=== PATIENT | female | born 1975 | race Asian ===

== ENCOUNTER 2021-10-03 01:42 | Day surgery (SDC) | payer BC, SELFPAY ==
[2021-09-24 14:32] VITALS: BMI 35.9
--- NOTE | 2021-09-24 14:47 | PC.NURSE ---
Report to the Outpatient Waiting Room, entrance under the green pavilion located off [facility], at time 1200 on date 10/03/21. OR Time: 1300. - You and your visitor will be asked a series of questions to screen for COVID 19 for your protection. - A mask is required within the hospital. One visitor will be allowed to accompany the patient into the hospital. Patients visitor will be instructed to remain with patient at all times or leave the building. We will allow the visitor to come back to the postoperative area when patient is ready. Preoperative COVID Testing Requirements: No COVID Test needed if: (proof is required; if not received patient will have Rapid Test prior to entry) - Patient has received COVID Vaccine at least 14 days prior to procedure date or - Patient has positive COVID test result within last 90 days of surgery date. COVID Test needed if above criteria is not met Patients may have LIGHT BREAKFAST. Take the following medications with a SIP of water the morning of surgery: RX'D Medications to discontinue per physician: N/A Date to take last dose: N/A Please no make-up, nail hebrew, hairspray, perfume, deodorant, or body powder the day of surgery. No jewelry (including any body piercings) or valuables the day of surgery, leave them at home. Please take a shower or bath the night before, or the morning of, surgery with an antibacterial soap. Wear comfortable, loose fitting clothing. - Jewelry must be removed prior to entering the operating room. Rings and piercings that are not removed may be cut off. - The hospital will not accept responsibility for valuables. - Please leave all valuables, including medications, at home the day of surgery. If you are going home after surgery, YOU MAY DRIVE YOURSELF. Follow any additional instructions given to you from your surgeon. Telephone instructions given to JANETH ABERNATHY and asked if any additional questions and then verbalized understanding. Patient advised to call surgeon office or pre surgery nurse liaison [phone] if any additional questions.
--- NOTE | 2021-10-03 07:17 | WPDHPUPDATE1 ---
History and Physical Update Update Date/Time: 10/03/21 07:17 History and Physical has been reviewed, including an updated exam of the patient. There are NO changes in the patient's condition. Risks, benefits, and alternatives have been discussed and questions answered. Patient agrees to proceed with procedure.
[2021-10-03 08:16] VITALS: BP 139/89; PULSE 88; RESP 20; TEMP 37; O2SAT 98
[2021-10-03 10:00] VITALS: BP 123/76; PULSE 74; RESP 20; O2SAT 98
[2021-10-03 10:10] VITALS: BP 129/80; PULSE 68; RESP 20; O2SAT 99
[2021-10-03 10:20] VITALS: BP 127/68; PULSE 73; RESP 20; O2SAT 99
[2021-10-03 10:27] VITALS: BP 120/74; PULSE 69; RESP 20; O2SAT 99
[2021-10-03] MEDS: LIDO 1%/EPINEPHRINE/PF 1:200,000 30 ML VIAL INFILTRATE (10:32)
--- NOTE | 2021-10-03 10:44 | W.PM.PROC2 ---
Procedure Note - Detailed Date of Procedure 10/03/21 Pre-op Diagnosis right carpal tunnel syndrome Post-op Diagnosis Same Procedure Performed Right open carpal tunnel release Surgeon Frank Nair MD Anesthesia Local Description of Procedure The patient's right and was marked in the holding area. She was taken to the operating room and placed supine on the operating table. A time-out was held and confirmed. The extremity a was prepped and draped over a hand table. The site was marked for the incision. This area was infiltrated with 1% lidocaine with epinephrine. She required a couple of injections to complete the anesthesia . No tourniquet was utilized. The incision was made in the palm carried bluntly through the subcutaneous tissue. A couple of small vessels were cauterized. The palmar aponeurosis was incised with a 15. Blade. This was followed by incision into the transverse retinaculum. Under 3 point retraction the retinaculum was divided distally and then proximally to completely release it. The skin was closed with interrupted 5 0 nylon suture. No unusual anatomy was noted. The usual bandage was applied and she is discharged home with instructions in wound care and follow-up. She has a prescription for hydrocodone 5/325 number 7 Estimated Blood Loss 1 Tourniquet Time 0 Drains No Packing No Pathology None sent Complications No immediate complications Condition Stable Disposition Same day
== END 2021-10-03 10:58 | disposition home or self-care (01) ==
PROVIDERS: PCP Emergency Medicine; Visit Provider Plastic Surgery
PROC: (CPT 64721; principal; 2021-10-03 09:15)
DX: G56.01 Carpal tunnel syndrome, right upper limb (principal)
CPT/HCPCS: 64721

== ENCOUNTER 2022-05-06 13:08 | Outpatient (RCR) | payer OTHER, SELFPAY ==
[2022-05-06 13:18] VITALS: BMI 35.6
[2022-05-06 14:02] VITALS: BMI 35.6
== END 2022-06-05 13:21 | disposition home or self-care (01) ==
LOC: ANHDMC 13:08
PROVIDERS: PCP Emergency Medicine; Visit Provider Emergency Medicine
DX: E11.65 Type 2 diabetes mellitus with hyperglycemia (principal); Z71.89 Other specified counseling; Z71.3 Dietary counseling and surveillance
CPT/HCPCS: 97802; G0108

== ENCOUNTER 2024-01-18 07:49 | Outpatient (CLI) | payer BC, SELFPAY ==
--- NOTE | ~2024-01-18 | DEXA_ITS ---
Bone Density Report Name: JANETH ABERNATHY Age: 48 Sex: Female Ethnicity: White Date of : 1975 Indication: postmenopausal; history of glucocorticoids; cancer; Referring Provider: JANICE SUAREZ Study: Bone densitometry was performed. Exam Date: January 18, 2024 Accession number: [id number] Bone Density: Region BMD T-score Z-score Classification AP Spine(L1-L4) 0.831 -2.0 -1.4 Osteopenia Femoral Neck (Left) 0.691 -1.4 -0.8 Osteopenia Total Hip (Left) 0.972 0.2 0.6 Normal Femoral Neck (Right) 0.639 -1.9 -1.3 Osteopenia Total Hip (Right) 0.915 -0.2 0.2 Normal Total Hip Mean 0.943 0.0 0.4 Normal World Health Organization criteria for BMD impression classify patients as: Normal (T-score at or above -1.0), Osteopenia (T-score between -1.0 and -2.5), or Osteoporosis (T-score at or below -2.5). 10-year Fracture Risk(1): Major Osteoporotic Fracture 6.5% Hip Fracture 0.8% Reported Risk Factors: [place] (), Neck BMD=0.639, BMI=33.9, glucocorticoids (1) FRAX(R) Version 3.08. Fracture probability calculated for an untreated patient. Fracture probability may be lower if the patient has received treatment. Clinical Information Provided by Patient: Has taken Glucocorticoids Has used the following medications: Vitamin D Has the following medical conditions: Cancer, Leukiema, Lupus Patient maximum height was 62.2 Menopause Age: 31 Drinks caffeinated beverages Onset of menses at age 12 Number of children 0 Missed period for more than 6 months in a row Impression: The patient has low bone mass, based on the Total Spine T-score. The patient has an estimated ten-year risk of hip fracture of 0.8% and an estimated ten-year risk of major fracture of 6.5%, based on the WHO FRAX algorithm. The patient has risk factors, including: history of glucocorticoid therapy. Discussion: BONE DENSITY IS LOW AT ONE OR MORE SKELETAL SITES. This patient's lowest T-score is low at one or more skeletal sites. It meets the World Health Organization's (WHO) criteria for ?low bone mass? (T-score between -1.0 and -2.5). The patient's 10-year risk of fracture as calculated by FRAX is less than the threshold where pharmacological therapy is recommended by the National Osteoporosis Foundation (NOF). However, all treatment decisions require clinical judgment and consideration of individual patient factors, including patient preferences, comorbidities, previous drug use, risk factors not captured in the FRAX model (e.g., frailty, falls, vitamin D deficiency, increased bone turnover, interval significant decline in bone density) and possible under or overestimation of fracture risk by FRAX. The patient should follow a healthful lifestyle (good nutrition with adequate calcium and vitamin D, and appropriate weight-bearing exercise). Follow-Up: Consider repeating this study in 2 to 3 years to reassess this pa
== END 2024-01-18 07:50 | disposition home or self-care (01) ==
PROVIDERS: PCP Emergency Medicine; Visit Provider Emergency Medicine
DX: M85.89 Other specified disorders of bone density and structure, multiple sites (principal); N95.0 Postmenopausal bleeding
CPT/HCPCS: 77080